=== PATIENT | male | born 1990 ===

== ENCOUNTER 2020-11-27 16:38 | Emergency (ER) | payer SELFPAY ==
[~2020-11-27] VITALS: Ht 177.8 cm; Wt 68.6 kg
[2020-11-27 16:51] VITALS: BP 144/91
--- NOTE | 2020-11-27 20:18 | NUR ---
PT LEFT AMA. PT SAYS HE IS UNABLE TO WAIT ANY LONGER. PT EDUCATED ON IMPORTANCE OF WAITING FOR RESULTS
== END 2020-11-27 20:26 | disposition left against medical advice (07) ==
LOC: ED 16:45
DX: M54.5 Low back pain (principal)
CPT/HCPCS: 99281